=== PATIENT | female | born 1960 | race Caucasian/White ===

== ENCOUNTER 2020-04-13 08:40 | Outpatient (CLI) | payer SELFPAY ==
[2020-04-14 12:35] LABS: COVID-19 RT-PCR UVMMC Result Negative (Negative)
== END 2020-04-13 08:41 | disposition home or self-care (01) ==
LOC: LBO 08:40
PROVIDERS: PCP Nurse Practitioner Family; Visit Provider Nurse Practitioner Family
DX: R11.10 Vomiting, unspecified (principal); R19.7 Diarrhea, unspecified; R50.9 Fever, unspecified; R51.9 Headache, unspecified; R53.81 Other malaise; Z20.822 Contact with and (suspected) exposure to COVID-19
CPT/HCPCS: U0003

== ENCOUNTER 2021-02-15 02:51 | Outpatient (CLI) | payer OTHER, SELFPAY ==
[2021-02-15 11:18] LABS: Anion Gap 10.6 mmol/L (3-11); BUN 7 mg/dL (7-18); CO2 27.4 mmol/L (21.0-32.0); CREATININE 0.5 mg/dL (0.55-1.02); Calcium 9.1 mg/dL (8.5-10.1); Calculated LDL 133 mg/dL (<100); Chloride 99 mmol/L (98-107); Cholesterol 220 mg/dL (<200); Glucose 85 mg/dL (74-106); HDL Cholesterol 72 mg/dL (40-60); Potassium 3.9 mmol/L (3.5-5.1); Sodium 137 mmol/L (136-145); Triglyceride 75 mg/dL (<150); Vitamin B12 560 pg/mL (193-986)
[2021-02-17 01:44] LABS: Vitamin D 25 Total 69.7 ng/mL (30-100)
== END 2021-02-15 02:52 | disposition home or self-care (01) ==
LOC: LBO 02:51
PROVIDERS: PCP Nurse Practitioner Family; Visit Provider Nurse Practitioner Family
DX: Z13.1 Encounter for screening for diabetes mellitus (principal); Z51.81 Encounter for therapeutic drug level monitoring; Z78.9 Other specified health status; Z13.220 Encounter for screening for lipoid disorders; E55.9 Vitamin D deficiency, unspecified
CPT/HCPCS: 36415; 80048; 80061; 82306; 82607

== ENCOUNTER 2021-09-11 16:48 | Emergency (ER) | payer OTHER, SELFPAY ==
[2021-09-11 17:39] VITALS: BP 124/62; PULSE 74; RESP 18; TEMP 37.1; O2SAT 98
--- NOTE | 2021-09-11 18:45 | DI.RAD_ITS ---
Exam(s) XR KNEE LT 3V AP,LAT,MAISHA EXAM: XR KNEE LT 3V AP,LAT,MAISHA CLINICAL HISTORY: Medial knee pain. TECHNIQUE: 2D digital imaging was performed. COMPARISON: No exams were available for comparison FINDINGS: 3 views No evidence of acute fracture but there is a small amount of increased joint fluid. No prominent ruddy nt effusion. Minimal degenerative changes. Most evident in the medial compartment where are small m arginal osteophytes. No joint space narrowing. IMPRESSION: Minimal degenerative changes. Small joint effusion. DATA REPOSITORY: RADIATION DOSE DELIVERED:
--- NOTE | 2021-09-11 18:52 | W.ED.GENAD ---
Discharge Plan Disposition Patient Disposition: HOME Condition: Improving Discharge Details Clinical Impression: Knee derangement Primary Care Provider: Arcelia Mckenzie ED Provider: Arcenio Ivey Home Meds and New Rx's Prescriptions: Continued zinc PO cyanocobalamin (vitamin B-12) [Vitamin B-12] 1,000 MCG tablet 1,000 mcg PO three times a week cholecalciferol (vitamin D3) 5,000 UNIT tablet 5,000 unit PO three times a week naproxen sodium [Aleve] 220 mg Capsule 220 mg PO Q12H PRN diclofenac sodium 50 mg Tablet,Delayed Release (Dr/Ec) 50 mg PO BID Discharge Instructions Instructions: Knee Pain (ED), Knee Immobilizer (ED) Additional Instructions: Wear straight leg/knee immobilizer brace while awake and out of bed. As we discussed, you may perform gentle daily range of motion exercises. Apply ice to area to reduce discomfort. Elevate above the level of the heart to reduce pain and swelling. A referral on your behalf will be placed to orthopedics. Call the office on Sunday at [phone] to arrange a follow-up appointment time. May continue diclofenac and/or Tylenol as needed for discomfort. Medical Decision Making This is a 60-year-old female who feels that she injured her left knee when her leg deviated while cross-country skiing this early spring. She has had some intermittent episodes of stiffness and pain since that time. This morning she went to dive into the water and with the forced extension she felt an uncomfortable sensation in her knee and then later while walking from the water through a car the knee deviated laterally and gave out. Since that time she has had pain with flexion of the knee, and feels improved while straight and lying flat on the bed. She did not injure herself in any other way. On exam the patient has question of subtle laxity on anterior drawer test she is tender overlying the medial joint line. Referred for XR which does reveal minimal joint fluid, no acute bony pathology. Patient will be placed in knee immobilizer with range of motion exercises performed daily. We will refer her to orthopedics to evaluate for internal derangement of the knee. She is stable and appropriate for discharge to home at this time. HPI General Mode of arrival: ambulatory. Date/Time Provider Initiated Documentation: 09/11/21 17:50. Limitations to Documentation: no limitations. Information obtained by: patient and family. History of Present Illness 60 year old F presents to the emergency department with the chief complaint of Left knee pain, unstable today, described as moderate, Quality is described as dull and constant, and is localized to the left and lower extremity. Patient reports no radiation. Patient started experiencing this hour(s) and it has been constant. No relieving factors improve symptom(s), No exacerbating factors reported . Patient did receive the following treatments prior to arrival, none Related Data Home Medications Medication Instructions Recorded Confirmed cholecalciferol (vitamin D3) 125 5,000 unit PO three times a week 04/13/16 02/10/21 mcg (5,000 unit) tablet cyanocobalamin (vitamin B-12) 1,000 mcg PO three times a week 04/13/16 09/11/21 1,000 mcg tablet (Vitamin B-12) zinc PO 02/10/21 02/10/21 diclofenac sodium 50 mg 50 mg PO BID 09/11/21 09/11/21 tablet,delayed release naproxen sodium 220 mg capsule 220 mg PO Q12H PRN 09/11/21 09/11/21 (Aleve) Allergies Allergy/AdvReac Type Severity Reaction Status Date / Time amoxicillin Allergy Unknown Verified 09/11/21 17:47 General Stated Complaint: Orthopedic SYED: 4 Review of Systems Narrative: No other injury. No numbness or tingling. No weakness. PFSH All Active Problems (Updated 09/11/21 @ 19:41 by Arcenio Ivey MD) Knee derangement (Acute) Hyperlipidemia, unspecified (Chronic) 02/2021 labs: 10-year ASCVD risk ~2.8% Medical History Postmenopausal LMP ~2012 Surgical History History of breast lump/mass excision R breast, 2 infected ducts Family History Mother Essential hypertension Dementia Hypothyroidism Fibrocystic breast disease Brother Diabetes Type I Hyperlipidemia Sister Hypothyroidism Maternal Aunt Hypothyroidism Maternal Uncle Colon cancer Social History Smoking/Tobacco Use Status: Never Smoking risk assessment performed?: Yes Drug use: Never Adopted: No Caregiver/Support person: No Foster care: No Household members: spouse Housing: house Number of Children: 3 number of grandchildren: 4 Communication Needs: None Education Level: master's degree Do you need help understanding health information?: Rarely current occupation: Retired software product manager Pets and animals: No Sexually active: Yes Do you think of yourself as: straight/heterosexual Current gender identity: female What is your relationship status?: How often do you talk on the phone with friends or family?: three or more times per week How often do you get together with friends or relatives?: once per week Do you belong to any clubs or organized social groups?: yes Panel score (0-1 are the most socially isolated patients): 3 What type of physical activity do you participate in: walking and other Details: Hiking Duration: 45-60 minutes/day Frequency: daily Sharon/Rastafarian: Congregation Seatbelt use: always Helmet use: Yes Drive intox or ride w/intox milk wagon driver: No Do you feel safe at home: Yes Do you feel safe in your relationship?: Yes Exam Narrative Exam Narrative: GEN: awake, alert, oriented 3. Pleasant, well groomed, interactive. HEAD: Normocephalic, atraumatic ENT: External ear exam unremarkable EYES: PERRL, EOMI EXT: Left knee tender along the medial joint line and with medial stress. Question subtle laxity on anterior drawer test. No pain with axial loading of the lower leg Neuro: Grossly normal neurologic exam, conversant, interactive. Psych: Speech fluent, thoughts congruent, affect normal Course Vital Signs Vital signs: Vital Signs Temperature 37.1 C 09/11/21 17:39 Pulse 74 09/11/21 17:39 Respiratory Rate 18 09/11/21 17:39 Blood Pressure 124/62 09/11/21 17:39 Pulse Oximetry 98 09/11/21 17:39 Temperature 37.1 C 09/11/21 17:39 Temperature Source Temporal Artery Scan 09/11/21 17:39 Pulse 74 09/11/21 17:39 Respiratory Rate 18 09/11/21 17:39 Respiratory Effort 09/11/21 18:17 Blood Pressure 124/62 09/11/21 17:39 Blood Pressure Position Sitting 09/11/21 17:39 Pulse Oximetry 98 09/11/21 17:39 Oxygen Delivery Method Room Air 09/11/21 17:39 Oxygen Flow Rate 0 09/11/21 17:39 Pain Level 4 09/11/21 18:25
--- NOTE | 2021-09-11 19:54 | DI.VRAD_ITS ---
PROCEDURE INFORMATION: Exam: XR Left Knee Exam date and time: 09/11/2021 19:47 Age: 60 years old Clinical indication: Left; Patient HX: Medial knee pain TECHNIQUE: Imaging protocol: Radiologic exam of the Left knee. Views: 3 views. COMPARISON: No relevant prior studies available. FINDINGS: Bones/joints: Minimal medial compartment degenerative changes. No acute fracture or subluxation. Minimal joint fluid. Soft tissues: Benign appearing distal quadriceps enthesophyte. IMPRESSION: 1. No acute bony pathology. 2. Minimal joint fluid. Dictated and Authenticated by: Lisa Lipscomb MD. Ordering:HUSSEIN Rg MD
== END 2021-09-11 20:16 | disposition home or self-care (01) ==
PROVIDERS: Emergency Provider Emergency Medicine; PCP Nurse Practitioner Family
DX: M23.92 Unspecified internal derangement of left knee (principal)
CPT/HCPCS: 73562; 99283; 99282

== ENCOUNTER → 2021-10-07 00:31 | Outpatient (CLI) | payer OTHER, SELFPAY ==
--- NOTE | 2021-10-07 08:00 | DI.MRI_ITS ---
Exam(s) MR LOWER JOINT LT WO EXAM: MR LOWER JOINT LT WO CLINICAL HISTORY: L KNEE PAIN, ? MENISCAL TEAR, KNEE DERANGEMENT, M23.90. TECHNIQUE: Multiplanar multisequence MRI was performed. COMPARISON: CR,XR XR KNEE LT 3V AP,LAT,MAISHA from 09/11/2021 FINDINGS: BONES: There is mild marrow edema in the patella. No findings to suggest an occult fracture. JOINTS: In the medial femoral tibial joint space, there is thinning of the articular cartilage, peria rticular spurring and subchondral edema. There is a large joint effusion. There is a thin suprapate llar plica. TENDONS: Extensor mechanism: Unremarkable. Medial retinaculum: Unremarkable. Lateral retinaculum: Unremarkable. Popliteus: Unremarkable. MUSCLES: Unremarkable. MENISCI: There is hyperintense signal seen in the root of the medial meniscus consistent with a tear. Degenerative changes are also seen in the medial meniscus. The lateral meniscus is unremarkable. SOFT TISSUES: Unremarkable. LIGAMENTS: Anterior Cruciate: Unremarkable. Posterior Cruciate: Unremarkable. Medial Collateral:There is fluid around the medial collateral ligament which may represent a sprain. No evidence of a tear. Lateral Collateral: Unremarkable. OTHER: IMPRESSION: 1. Tear of the root of the medial meniscus. 2. MCL sprain. 3. Large joint effusion. 4. Degenerative changes in the medial femoral tibial joint. 5. Marrow edema in the patella without evidence of a fracture. DATA REPOSITORY:
== END ==
PROVIDERS: PCP Nurse Practitioner Family; Visit Provider Student in an Organized Health Care Education/Training Program
DX: M23.92 Unspecified internal derangement of left knee (principal); S83.242A Other tear of medial meniscus, current injury, left knee, initial encounter; M17.12 Unilateral primary osteoarthritis, left knee; W19.XXXA Unspecified fall, initial encounter
CPT/HCPCS: 73721

== ENCOUNTER 2024-10-03 11:08 | Outpatient (CLI) | payer MEDICARE, SELFPAY ==
--- NOTE | 2024-10-03 11:55 | DI.RAD_ITS ---
Exam(s) XR SHOULDER RT COMPLETE 2+V EXAM: XR SHOULDER RT COMPLETE 2+V CLINICAL HISTORY: Right shoulder pain, M25.511. TECHNIQUE: 2D digital imaging was performed. Five views. COMPARISON: No exams were available for comparison FINDINGS: BONES: No acute fracture is present. No bony destructive lesion is seen. JOINTS: No dislocation present. Glenohumeral joint space is maintained. There is mild spurring at the glenoid. No significant spurring at the AC joint. SOFT TISSUE: Mild tendon calcifications near the greater tuberosity could indicate calcific tendinosis. IMPRESSION: Mild degenerative changes. Mild calcific tendinosis. DATA REPOSITORY: RADIATION DOSE DELIVERED:
== END 2024-10-03 11:28 ==
LOC: DI 11:09
PROVIDERS: PCP Nurse Practitioner Family; Visit Provider Family Medicine
DX: M25.511 Pain in right shoulder (principal); M75.31 Calcific tendinitis of right shoulder
CPT/HCPCS: 73030

== ENCOUNTER 2024-12-30 10:49 | Outpatient (REF) | payer MEDICARE, SELFPAY ==
[2024-12-31 15:09] LABS: Campylobacter PCR Negative (Negative); Shiga Toxin PCR Negative (Negative); Shigella/Enteroinvasive Ecoli Negative (Negative)
== END 2024-12-30 10:50 | disposition home or self-care (01) ==
LOC: LBN 10:49
PROVIDERS: PCP Nurse Practitioner Family; Visit Provider Family Medicine
DX: R19.7 Diarrhea, unspecified (principal)
CPT/HCPCS: 87015; 87269; 87272; 87505; 83993